=== PATIENT | male | born 1935 | race Caucasian/White ===

== ENCOUNTER 2016-11-17 17:22 | Emergency (ER) | payer OTHER ==
--- NOTE | 2016-11-17 18:30 | PROVIDER DOCUMENTATION ---
[facility], [facility] General - General Source: family - History of Present Illness-EENT General EE Location: reports: throat Quality of Pain: reports: none Onset/Duration: reports: 1-3 hours ago Timing: reports: still present Associated Symptoms: reports: other (possible swallowed partial) Locality of Occurance: Home Similar Symptoms Previously?: No Recently seen or treated by another doctor?: No - Throat/Dental Throat/Dental Problem Context: reports: foreign body <Zo Guerra - Last Filed: 11/17/16 18:30> <Hair Hudson - Last Filed: 11/17/16 19:11> - General Chief Complaint: Foreign Body Stated Complaint: POSS FOREIGN OBJECT Time Seen by Provider: 11/17/16 18:20 Allergies/Adverse Reactions: Patient Allergies Allergy/AdvReac Type Severity Reaction Status Date / Time No Known Allergies Allergy Verified 11/17/16 18:40 Home Medications: Carbidopa/Levodopa [Carbidopa-Levo 25-100 Tab] 1 each PO TID 10/21/16 Donepezil [Aricept] 10 mg PO DAILY 10/21/16 Levothyroxine [Synthroid] 75 microgm PO DAILY 10/21/16 Mirabegron [Myrbetriq] 50 mg PO QHS 10/21/16 - History of Present Illness-[facility] General Nature of Presenting Problem: 81 year old M presents to the ED with a cc of possibly swallowing his partial. states that she fixed him soup to eat around 1600. states that she noticed him about 30 minutes later making a choking noise and going to the bathroom spitting. states she asked if he was okay and looked into his mouth. states that she noticed his partial missing and his voice was different. fears that he swallowed his partial. (Zo Guerra) Review of Systems - Adult - REVIEW OF SYSTEMS - ADULT Constitutional: denies: chills, fever Eyes: reports: no symptoms reported Ears, Nose, Mouth & Throat: reports: hoarseness, other (possible swallowed partial) Cardiovascular: reports: no symptoms reported Respiratory: reports: no symptoms reported Gastrointestinal: reports: no symptoms reported Genitourinary: reports: no symptoms reported Musculoskeletal: reports: no symptoms reported Integumentary: reports: no symptoms reported Neurological: reports: no symptoms reported Psychiatric: reports: no symptoms reported Endocrine: reports: no symptoms reported Hematologic/Lymphatic: reports: no symptoms reported Allergic/Immunologic: reports: no symptoms reported All Other Systems: Reviewed and Negative <Zo Guerra - Last Filed: 11/17/16 18:30> Past History - Adult - PAST MEDICAL HISTORY-ADULT Review of Records: reports: Nursing Assessment Review, Medications Reviewed Major Childhood Illnesses: reports: denies history Cardiovascular: reports: hyperlipidemia Genitourinary: reports: other (hx of BPH ) Neurological: reports: dementia, Parkinson's Psychiatric: reports: other (dementia) Endocrine/Immune: reports: Diabetes, thyroid disorder - PRIOR SURGERIES/PROCEDURES Surgical/Procedure History: reports: reviewed, not pertinent - IMMUNIZATION STATUS Childhood Immunizations: See Nurse Assessment Flu Vaccine: See Nurse Assessment - FAMILY HISTORY Family History: reviewed, not pertinent, diabetes - SOCIAL HISTORY Smoking: non-smoker Substance Use: none/never Alcohol Use Frequency: never <Zo Guerra - Last Filed: 11/17/16 18:30> Physical Exam- EENT - Physical Exam EENT Initial Vital Signs Reviewed: Yes General Appearance: appears well, alert, no apparent distress Throat Exam: foreign body (visualized foreign body(partial)) Respiratory: chest non-tender, lungs clear, normal breath sounds Cardiovascular: normal peripheral pulses, regular rate, rhythm, no edema Integumentary: normal color, normal turgor, warm/dry Psych/Mental Status: normal mood/affect, oriented x 3 <Zo Guerra - Last Filed: 11/17/16 18:30> Progress <CharlieZo - Last Filed: 11/17/16 18:30> - REASSESSMENT Reassessment #1 Time Reassessed: 19:11 Status: improving Reassessment Comment: Pt. reports he feels fine and has no complaints at this time. - XRAY 1 XRAY Study: Chest (No pneumonia (Mabel)), other (AP and lateral soft tissue of the neck. Partial dentures stuck in the valecula (Tristan)) XRAY Interpretation: See note 2 XRAY Study: Chest (No change from prior (Tristan)), other (AP and lateral soft tissue - No FB found and no Sub Q emphasema noted (Lopez)) XRAY Interpretation: See note <Hair Hudson - Last Filed: 11/17/16 19:11> - PLAN OF CARE/RESULTS Progress/Plan/Lab Results: Discussed results and plan of care with patient. Patient agrees with plan and verbalizes understanding. Vital Signs Temp Pulse Resp BP Pulse Ox 11/17/16 17:45 97.8 F 71 16 174/103 100 No Known Allergies Allergy (Verified 11/17/16 18:40) Carbidopa/Levodopa [Carbidopa-Levo 25-100 Tab] 1 each PO TID 10/21/16 Donepezil [Aricept] 10 mg PO DAILY 10/21/16 Levothyroxine [Synthroid] 75 microgm PO DAILY 10/21/16 Mirabegron [Myrbetriq] 50 mg PO QHS 10/21/16 Orders Category Date Time Status CHEST-1 VIEW [RAD] Stat Exams 11/17/16 18:36 Taken CHEST-2 VIEWS [RAD] Stat Exams 11/17/16 17:55 Taken NECK AP AND/OR LAT SOFT TISSUE [RAD] Stat Exams 11/17/16 17:55 Taken NECK AP AND/OR LAT SOFT TISSUE [RAD] Stat Exams 11/17/16 18:36 Taken (Hair Hudson) Procedures - ENT PROCEDURES Epiglottis/Foreign Body Visualization: Tongue Blade Oral Foreign Body Removal Method: Forceps Procedure Comment: PT tolerated well. <Zo Guerra - Last Filed: 11/17/16 18:30> Departure <Zo Guerra - Last Filed: 11/17/16 18:30> - Departure Time of Disposition Order: 19:03 Certified Medical Emergency: Emergent <Hair Hudson - Last Filed: 11/17/16 19:11> - Departure DIAGNOSIS: Foreign body in trachea Qualifiers: Encounter type: initial encounter Qualified Code(s): T17.408A - Unspecified foreign body in trachea causing other injury, initial encounter Disposition: HOME 01 Condition: Stable Additional Instructions: Follow up with primary care physician Return to ED for any Fever, pain in chest, SOB, spitting up blood. Return to ED for any concerns or worsening of symptoms ED Follow Up Instructions: You have been treated by a care provider in the Emergency Department. These instructions are being provided to you so you can have an understanding of how to care for yourself upon discharge. Upon discharge from the Emergency Department, you are responsible for making arrangements for follow-up care by a physician of your choice. Take all prescribed medications as directed. Return to the Emergency Department immediately for any new or worsening symptoms. You may call the Physician Referral phone number at [phone] to obtain a list of Physicians who are taking new patients. Referrals: Feliz Beckford Jr, MD [Primary Care Provider] - Attestation - Scribe Verification/Attestation Scribe:: Zo Guerra Acting as Scribe for:: Hair Hudson Scribe documention review:: This chart was documented by a scribe and accurately reflects the service the provider performed and the decisions made by the provider. <Zo Guerra - Last Filed: 11/17/16 18:30> - Physician/ Mid-level Attestation Patient care was provided by Mid-level provider (EXPANDER/PA):: Yes Mid-level provider:: Hair Hudson Mid-level documentation review:: The Mid-level provider documentation, treatment plan and medical decision making was reviewed by the physician who agrees with all treatment and medical decision making by the P. <Hair Hudson - Last Filed: 11/17/16 19:11> Physician Attestation - Physician Attestation I, the provider, attest to the following statement:: Hair Hudson Physician documentation Attestation:: This documentation recorded by the scribe accurately reflects the service I personally performed and the decisions made by me. <Zo Guerra - Last Filed: 11/17/16 18:30>
[2016-11-17 19:38] VITALS: BP 160/89
--- NOTE | 2016-11-18 08:12 | Diag Imaging Result Document ---
PROCEDURE NAME: CHEST-2 VIEWS - 11/17/2016 TWO VIEWS OF THE CHEST: FINDINGS: There is minimal atelectasis or fibrosis in the left costophrenic angle. This was probably slightly worse on 10/22/2016. IMPRESSION: Improved left basilar atelectasis.
--- NOTE | 2016-11-18 08:13 | Diag Imaging Result Document ---
PROCEDURE NAME: CHEST-1 VIEW - 11/17/2016 AP CHEST: TIME: 1856 hours. FINDINGS: The inspiration is less optimal than on the previous study at 1811 hours. Otherwise, there has been no significant change. IMPRESSION: Poor inspiration.
--- NOTE | 2016-11-18 08:14 | Diag Imaging Result Document ---
PROCEDURE NAME: NECK AP AND/OR LAT SOFT TISSUE - 11/17/2016 AP AND LATERAL SOFT TISSUE NECK: FINDINGS: The partial plate has been removed from the hypopharynx. No additional findings are present. IMPRESSION: Removal of foreign body as described.
--- NOTE | 2016-11-18 08:16 | Diag Imaging Result Document ---
PROCEDURE NAME: NECK AP AND/OR LAT SOFT TISSUE - 11/17/2016 AP AND LATERAL SOFT TISSUE NECK: FINDINGS: There is a dental appliance in the hypopharynx lodged in the vallecula on the left side. No evidence of epiglottitis or prevertebral soft tissue swelling is present. IMPRESSION: Partial plate in the hypopharynx. [facility]
== END 2016-11-17 19:38 | disposition home or self-care (01) ==
LOC: ED 17:22
DX: T17.408A Unspecified foreign body in trachea causing other injury, initial encounter (principal); R49.0 Dysphonia; E78.5 Hyperlipidemia, unspecified; G20 Parkinson's disease; F02.80 Dementia in other diseases classified elsewhere, unspecified severity, without behavioral disturbance, psychotic disturbance, mood disturbance, and anxiety; E11.9 Type 2 diabetes mellitus without complications; E07.9 Disorder of thyroid, unspecified; Z79.899 Other long term (current) drug therapy; Z83.3 Family history of diabetes mellitus
CPT/HCPCS: 70360; 71010; 71020; 99283